=== PATIENT | female | born 1980 | race Caucasian/White ===

== ENCOUNTER 2017-11-23 09:14 | Day surgery (SDC) | payer MEDICAID ==
[~2017-11-23 09:14] MED LIST: CARI250T PO; CYCL-394 PO; GUAI600T45 PO; IBUP-1984 PO; IBUP-1985 PO; LORA1TAB PO; NAPR-1144 PO; QUET25TA PO
[2017-11-23] MEDS ORDERED: LIDOcaine 1%/PF 5ML 10 MG/ML VIAL IJ ONE (09:45)
[2017-11-23] MEDS ORDERED: IBUP-1984 PO (09:59)
[2017-11-23 10:14] VITALS: BP 132/81
[2017-11-23 10:34] VITALS: BP 136/73
[2017-11-23 10:55] VITALS: BP 136/73
[2017-11-23 11:00] VITALS: BP 140/89
== END 2017-11-23 11:26 | disposition home or self-care (01) ==
LOC: SSTAY O 09:14
PROVIDERS: ATTEND Radiology Diagnostic Radiology
DX: M79.89 Other specified soft tissue disorders (principal); M19.90 Unspecified osteoarthritis, unspecified site; F32.9 Major depressive disorder, single episode, unspecified; Z79.1 Long term (current) use of non-steroidal anti-inflammatories (NSAID); Z98.890 Other specified postprocedural states; Z79.899 Other long term (current) drug therapy
CPT/HCPCS: 49180; 76942; J2001; 36415; J7030

== ENCOUNTER 2018-07-20 18:11 | Emergency (ER) | payer MEDICAID ==
[~2018-07-20] VITALS: Ht 162.6 cm; Wt 78.8 kg
[~2018-07-20 18:11] MED LIST changes: -CARI250T PO; -CYCL-394 PO; -GUAI600T45 PO; -IBUP-1985 PO; -NAPR-1144 PO
[2018-07-20 18:29] VITALS: BP 121/76
== END 2018-07-20 20:35 | disposition home or self-care (01) ==
LOC: ER 18:11
DX: S06.0X0A Concussion without loss of consciousness, initial encounter (principal); G89.29 Other chronic pain; Z56.0 Unemployment, unspecified; W00.0XXA Fall on same level due to ice and snow, initial encounter; Y93.89 Activity, other specified; Y92.89 Other specified places as the place of occurrence of the external cause; Y99.8 Other external cause status
CPT/HCPCS: 93005; 99283

== ENCOUNTER 2020-07-11 14:55 | Emergency (ER) | payer MEDICAID ==
[~2020-07-11] VITALS: Ht 162.6 cm; Wt 100.0 kg
[2020-07-11 15:20] VITALS: BP 145/86
== END 2020-07-11 17:05 | disposition home or self-care (01) ==
LOC: ER 14:56
DX: T62.8X1A Toxic effect of other specified noxious substances eaten as food, accidental (unintentional), initial encounter (principal); G89.29 Other chronic pain; Z98.890 Other specified postprocedural states; Z56.0 Unemployment, unspecified; Z79.899 Other long term (current) drug therapy; Y92.89 Other specified places as the place of occurrence of the external cause
CPT/HCPCS: 99283

== ENCOUNTER 2020-07-22 05:21 | Day surgery (SDC) | payer MEDICAID ==
[2020-07-15 12:13] LABS: CLARITY,URINE CLEAR (Clear); COLOR,URINE YELLOW (Yellow); GLUCOSE, URINE NEGATIVE (Neg); KETONES,URINE NEGATIVE (Neg); LEUKOCYTE ESTERASE ,URINE NEGATIVE (Neg); NITRITES, URINE NEGATIVE (Neg); OCCULT BLOOD,URINE NEGATIVE (Neg); PROTEIN,URINE NEGATIVE (Neg); UROBILINOGEN,URINE 0.2 E.U/dL (0.2-1.0)
[2020-07-15 12:15] LABS: BASOPHILS % (AUTO) 0.5 % (0-1); EOSINOPHILS # (AUTO) 0.1 X10'3 (0-0.9); EOSINOPHILS % (AUTO) 1.3 % (0-6); LYMPHOCYTES % (AUTO) 23.7 % (21-51); MEAN CORPUSCULAR HEMOGLOBIN 29.6 PG (27.0-31.0); MEAN CORPUSCULAR HGB CONC 33.6 g/dL (33.0-36.5); MEAN CORPUSCULAR VOLUME 88.1 FL (78-98); MEAN PLATELET VOLUME 8.5 FL (7.4-10.4); MONOCYTES # (AUTO) 0.6 X10'3 (0-0.9); MONOCYTES % (AUTO) 6.6 % (2-12); NEUTROPHILS # (AUTO) 5.8 X10'3 (1.8-7.7); NEUTROPHILS % (AUTO) 67.9 % (42-75); PRE OP HEMATOCRIT 40.7 % (35.0-45.0); PRE OP HEMOGLOBIN 13.7 g/dL (12.0-16.0); PRE OP PLATELET COUNT 275 X10'3 (140-440); RED BLOOD COUNT 4.63 X10'6 (4.20-5.60); RED CELL DISTRIBUTION WIDTH 14.1 % (11.5-14.5)
[2020-07-15 12:18] LABS: UA COLLECTION TYPE CLN CATCH MIDSTREAM
[2020-07-15 12:53] LABS: ALBUMIN 3.4 G/DL (3.4-5.0); ALBUMIN/GLOBULIN RATIO 0.9 (1.1-1.5); ALKALINE PHOSPHATASE 68 IU/L (46-116); BLOOD UREA NITROGEN 17 MG/DL (7-18); BUN/CREATININE RATIO 25.4 (6.6-38.0); CALCIUM 9.2 MG/DL (8.5-10.1); CHLORIDE 106 MMOL/L (99-107); CREATININE 0.67 MG/DL (0.40-0.90); PRE OP ALT 21 U/L (30-65); PRE OP ANION GAP 8 (8-16); PRE OP AST 13 U/L (10-37); PRE OP BILIRUB, TOTAL 0.2 MG/DL (0.0-1.0); PRE OP GLUCOSE 95 MG/DL (70-104); PRE OP POTASSIUM 4.1 MMOL/L (3.4-5.1); PRE OP SODIUM 139 MMOL/L (135-145); TOTAL CARBON DIOXIDE 25.1 MMOL/L (24-32); TOTAL PROTEIN 7.4 G/DL (6.4-8.2); eGFR > 90 ML/MIN
[2020-07-15 12:55] LABS: PRE OP PROTIME 10.1 SECONDS (9.0-12.0)
[2020-07-15 13:16] LABS: HCG SERUM QL NEGATIVE
[~2020-07-22] VITALS: Ht 162.6 cm; Wt 100.8 kg
[2020-07-22] VITALS (8 sets, daily range): BP systolic 120–152; BP diastolic 73–94
[2020-07-22] MEDS ORDERED: famotidine 20mg tablet PO ONE (05:30)
[2020-07-22] MEDS ORDERED: ceFOXitin 2GM-NS 100mL ADDvant 100 ML IV ONE (05:30)
[2020-07-22] MEDS ORDERED: albuterol 2.5 MG/3 ML nebule NEB ONE (05:30)
[2020-07-22] MEDS ORDERED: hydrALAZINE 20mg/ml inj. IV PRN (07:15)
[2020-07-22] MEDS ORDERED: ringers solution, lacted 1,000 ML IV SCH (07:15)
[2020-07-22] MEDS ORDERED: meperidine/PF 25mg/ml syringe IV PRN (07:15)
[2020-07-22] MEDS ORDERED: HYDROmorphone/PF 0.2 MG/ML SYRINGE IV PRN ×2 (07:15)
[2020-07-22] MEDS ORDERED: ondansetron/PF 4mg/2ml inj IV PRN (07:15)
[2020-07-22] MEDS ORDERED: labetalol 20mg/4ml (5mg/ml) syringe IV PRN (07:15)
[2020-07-22] MEDS ORDERED: morphine 4 MG/ML inj SYRINge IV PRN (07:15)
[2020-07-22] MEDS ORDERED: morphine 2 MG/ML inj. syringe IV PRN (07:15)
[2020-07-22] MEDS ORDERED: proCHLORperazine 10 MG/2 ml inj IV PRN (07:15)
[2020-07-22] MEDS ORDERED: acetaminophen 1,000mg/100ml IV 100 ML IV PRN (07:15)
[2020-07-22] MEDS ORDERED: fentaNYL/PF 50MCG/1 ML 2ML syringe ONE (07:20)
[2020-07-22] MEDS ORDERED: midazolam 2 mg/2 ml injection ONE (07:20)
[2020-07-22] MEDS ORDERED: sevoflurane 250ml liquid IH ONE (07:22)
[2020-07-22] MEDS ORDERED: LIDOcaine 2% (20mg/ml) 5ml vial ONE (07:37)
[2020-07-22] MEDS ORDERED: propofol inj 20 ML IV ONE (07:38)
[2020-07-22] MEDS ORDERED: dexamethasone sod phosphate 4mg/ml inj. ONE (07:40)
[2020-07-22] MEDS ORDERED: ondansetron/PF 4mg/2ml inj ONE (07:40)
--- NOTE | 2020-07-22 08:00 | NUR ---
Received from OR via , accompanied by Anesthesiologist DR STOUT and report given by Anesthesiolgist. AWAKENS TO VOICE. VITALS STABLE. ISAMAR PAIN. ABD SOFT.
--- NOTE | 2020-07-22 09:20 | NUR ---
AWAKE AND ORIENTED. VITALS STABL;E. STATES O0NLY MILD CRAMPING. HOME WITH HER SPOUSE AT THIS TIME.
== END 2020-07-22 09:20 | disposition home or self-care (01) ==
LOC: PRE-OP 05:21 → PAS 09:20
PROVIDERS: ATTEND Obstetrics & Gynecology
DX: Z30.432 Encounter for removal of intrauterine contraceptive device (principal); F17.210 Nicotine dependence, cigarettes, uncomplicated; F31.9 Bipolar disorder, unspecified; F20.9 Schizophrenia, unspecified; E66.9 Obesity, unspecified; Z68.38 Body mass index [BMI] 38.0-38.9, adult; Z98.890 Other specified postprocedural states; Z79.899 Other long term (current) drug therapy; Z79.01 Long term (current) use of anticoagulants
CPT/HCPCS: 36415; 58301; 80053; 81003; 82948; 84703; 85025; 85610; 85730; 86885; 86900; 86901; 94640; 94760; J0131; J0694; J1100; J2001; J2175; J2250; J2405; J2704; J3010; A4355; A4618

== ENCOUNTER 2024-07-15 18:18 | Emergency (ER) | payer MEDICAID ==
[~2024-07-15] VITALS: Ht 162.6 cm; Wt 70.3 kg
[2024-07-15 18:32] VITALS: BP 131/84; PULSE 59; RESP 18; TEMP 97.9; O2SAT 100
[2024-07-15] MEDS ORDERED: CEPH250T PO (19:34)
[2024-07-15] MEDS ORDERED: SULF-14 PO (19:34)
[2024-07-15] MEDS: amoxicillin 250mg capsule PO ONE (19:42)
== END 2024-07-15 19:46 | disposition home or self-care (01) ==
LOC: ER 18:19
DX: L03.011 Cellulitis of right finger (principal); Z79.2 Long term (current) use of antibiotics; Z79.1 Long term (current) use of non-steroidal anti-inflammatories (NSAID)
CPT/HCPCS: 73140; 99283